=== PATIENT | male | born 1965 | race Caucasian/White ===

== ENCOUNTER 2017-03-24 09:26 | Outpatient (RCR) | payer OTHER, SELFPAY ==
[2017-03-24 09:53] VITALS: BP 128/82; PULSE 76; RESP 18; TEMP 37.2; BMI 26.4
--- NOTE | 2017-03-24 10:37 | PCM.WC.HP ---
(1) Venous insufficiency (chronic) (peripheral) Status: Chronic Current Visit: Yes Code(s): I87.2 - Venous insufficiency (chronic) (peripheral) (2) Swelling of right lower extremity Status: Chronic Current Visit: Yes Code(s): M79.89 - Other specified soft tissue disorders (3) Edema of right lower leg due to venous stasis Status: Chronic Current Visit: Yes Code(s): I87.2 - Venous insufficiency (chronic) (peripheral); R60.9 - Edema, unspecified (4) Hepatitis C Status: Chronic Current Visit: No Code(s): B19.20 - Unspecified viral hepatitis C without hepatic coma (5) Lipodermatosclerosis Status: Chronic Current Visit: Yes Code(s): I83.10 - Varicose veins of unspecified lower extremity with inflammation (6) Hyperpigmentation Status: Chronic Current Visit: Yes Code(s): L81.9 - Disorder of pigmentation, unspecified (7) Tobacco abuse Status: Chronic Current Visit: No Code(s): Z72.0 - Tobacco use (8) Tobacco abuse counseling Status: Chronic Current Visit: No Code(s): Z71.6 - Tobacco abuse counseling History of Present Illness Date of Service: 03/24/17 Chief Complaint: Chronic venous insufficiency with chronic swelling, edema, and venous stasis changes in the right lower extremity History of Wound: This is a generally healthy and active 51-year-old male with suspected chronic venous insufficiency, and associated symptoms in his right lower extremity which are related to chronic venous disease. The patient has swelling and edema in his right lower extremity, which is more profound at the end of the day. He also complains of pain and discomfort in his right lower extremity. Patient has cutaneous manifestations of chronic venous disease, namely hyperpigmentation, hemosiderin staining, and lipodermatosclerosis on the medial aspect of the distal right lower extremity involving the gaiter area. The patient denies a history of thrombophlebitis. He leads an active lifestyle. He sleeps on a flat mattress at night. He elevates his legs during daytime hours frequently. The patient underwent a venous duplex examination at [facility] on March 10, 2017, which revealed no evidence of right lower extremity thrombophlebitis. Superficial venous incompetence was not assessed. Past Medical History Past Medical History: Chronic Problems Venous insufficiency (chronic) (peripheral) (Chronic) Swelling of right lower extremity (Chronic) Edema of right lower leg due to venous stasis (Chronic) Hepatitis C (Chronic) Lipodermatosclerosis (Chronic) Hyperpigmentation (Chronic) Tobacco abuse (Chronic) Tobacco abuse counseling (Chronic) Past Medical History: The patient's history is negative for myocardial infarction, congestive heart failure, hypertension, cerebrovascular accident, diabetes mellitus, cancer, renal disease, pulmonary disease, hyperlipidemia, and thyroid disease. Patient is positive for hepatitis C. He also uses tobacco products, smoking a pack of cigarettes per day. He takes no medications on a regular basis. Surgical History: - - The patient denies surgical procedures in the past. Allergies/Adverse Reactions: Allergies No Known Allergies Allergy (Verified 03/24/17 10:04) - Family History Maternal - - Patient's father is 73 years of age with a history of chronic obstructive pulmonary disease. Patient's mother is 72 years of age and healthy. Social History: The patient is employed as a [employer]. He is currently not working. He smokes 1 pack of cigarettes per day for many years. He consumes a sixpack of beer every couple of days. He is . Lives: Alone Smoking Status: Current every day smoker Tobacco Use: Cigarettes Alcohol: Occasional, Heavy Review of Systems Constitutional: Denies: Chills, Fever, Weight Change Eyes: Denies: Pain, Vision Change HEENT: Denies: Difficulty Hearing, Difficulty Swallowing, Sinus Congestion Cardiovascular: Denies: Chest Pain, Palpitations Respiratory: Denies: Cough, Shortness of Breath Gastrointestinal: Denies: Diarrhea, Nausea, Vomiting Genitourinary: Denies: Dysuria, Hematuria Endocrine: Denies: Heat/ Cold Intolerance, Polydipsia, Polyuria Hematologic/ Lymphatic: Denies: Easy Bruising, Easy Bleeding - Physical Exam Vital Signs Temp Pulse Resp BP 98.9 F 76 18 128/82 H 03/24/17 09:53 03/24/17 09:53 03/24/17 09:53 03/24/17 09:53 General: Alert, Oriented x3, Cooperative, No apparent distress, Well developed, Well nourished, - - The patient is of relatively normal body habitus HEENT: Atraumatic, PERRLA, EOMI, Normocephalic Oral: Moist Mucosa, No Gingival or Mucosal Lesions/ Ulcerations Neck: Supple, No JVD, Negative Carotid Bruits, Negative Hepatojugular Reflux, No Nodes, No Nuchal Rigidity, Trachea Midline Lungs: Clear to auscultation, Normal air movement, No rhonchi, No wheeze, No rales Cardiovascular: Regular rate, Regular Rhythm, Normal S1, Normal S2, No murmurs Abdomen: Soft, Non Tender, Non-Distended Extremities: No clubbing, No cyanosis, No Calf Tenderness, - - Very slight swelling and edema is noted in the patient's right lower extremity. Hemosiderin staining is noted near the right medial malleolus. A large patch of scaly erythematous epidermis is noted in the right supramalleolar area. There is no sign of infection or cellulitis. There are no open wounds or ulcerations. Wound Measurements and Assessment WC - Nurse 1 - General Ulcer Measurement Start: 03/24/17 09:52 Freq: Status: Active Protocol: Activity Type Activity Date Activity User E-Sign Co-Sign Detail Recorded Client Recorded Date Recorded By Document 03/24/17 09:53 [id number] 03/24/17 09:59 03/24/17 09:53 Wound Center Nurse 1 [Edema Assessment] -Lower Limb Edema Present Yes -Right Calf (cm) 36.3 -Right Ankle (cm) 21.5 -Left Calf (cm) 34.5 -Left Ankle (cm) 20.2 WC - Nurse 2 - General Ulcer CM Notes Start: 03/24/17 09:52 Freq: Status: Active Protocol: Activity Type Activity Date Activity User E-Sign Co-Sign Detail Recorded Client Recorded Date Recorded By Document 03/24/17 10:24 DV [id number] 03/24/17 10:27 DV 03/24/17 10:24 Pain Scale: 0-10 Numeric [Pain] -Is Patient Pain Free? Yes Musculoskeletal: No Muscle Wasting Neurological: Cranial nerves II-XII grossly intact, Neuro grossly intact Psych/Mental Status: Normal Affect, Appropriate, Alert and oriented to time, place, person, mood and affect Debridement Note Post-Debridement Measurements/Treatment WC - Nurse 2 - General Ulcer CM Notes Start: 03/24/17 09:52 Freq: Status: Active Protocol: Activity Type Activity Date Activity User E-Sign Co-Sign Detail Recorded Client Recorded Date Recorded By Document 03/24/17 10:24 DV [id number] 03/24/17 10:27 DV 03/24/17 10:24 Pain Scale: 0-10 Numeric Is Patient Pain Free? Yes No debridement was completed today Assessment/Plan Active Problems Venous insufficiency (chronic) (peripheral) (Chronic) Swelling of right lower extremity (Chronic) Edema of right lower leg due to venous stasis (Chronic) Lipodermatosclerosis (Chronic) Hyperpigmentation (Chronic) Assessment: This is a 51-year-old active male with swelling and edema in his right lower extremity, as well as some skin changes and hyperpigmentation in the right medial supramalleolar area. The location of the skin changes and the patient's history are suggestive of chronic venous disease. Plan: A lengthy discussion has been undertaken with regard to the conservative treatment measures appropriate to the management of chronic venous insufficiency. The patient has been advised to elevate his lower extremities as much as possible. He appears to be doing so already. He is sleeping on a flat mattress at night. He lays down to elevate his legs even during daytime hours. He has been advised to avoid prolonged idle standing and sitting. Activity has been encouraged. The patient is currently of reasonably good weight. Ultimately, we are likely to implement the use of graduated compression stockings, to be worn daily. We are to obtain a venous duplex examination of the lower extremities, to assess the patency and competence of the deep and superficial venous systems bilaterally. The patient will return in 1-2 weeks following completion of his venous duplex evaluation. The patient is a smoker. Smoking cessation has been advised. Counseling has been provided. Influenza vaccine was not administered today. The patient weighs 195 pounds. He stands 6 feet 0 inches tall. BMI is 26.4. This places the patient in the overweight category. He has been advised to discuss this matter with his primary care physician.
--- NOTE | 2017-03-24 10:47 | HP.PCM_ITS ---
(1) Venous insufficiency (chronic) (peripheral) Status: Chronic Current Visit: Yes Code(s): I87.2 - Venous insufficiency ( chronic) (peripheral) (2) Swelling of right lower extremity Status: Chronic Current Visit: Yes Code(s): M79.89 - Other specified soft tissue disorders (3) Edema of right lower leg due to venous stasis Status: Chronic Current Visit: Yes Code(s): I87.2 - Venous insufficiency ( chronic) (peripheral); R60.9 - Edema, unspecified (4) Hepatitis C Status: Chronic Current Visit: No Code(s): B19.20 - Unspecified viral hepatitis C without hepatic coma (5) Lipodermatosclerosis Status: Chronic Current Visit: Yes Code(s): I83.10 - Varicose veins of unspecified lower extremity with inflammation (6) Hyperpigmentation Status: Chronic Current Visit: Yes Code(s): L81.9 - Disorder of pigmentation , unspecified (7) Tobacco abuse Status: Chronic Current Visit: No Code(s): Z72.0 - Tobacco use (8) Tobacco abuse counseling Status: Chronic Current Visit: No Code(s): Z71.6 - Tobacco abuse counseling History of Present Illness Date of Service: 03/24/17 Chief Complaint: Chronic venous insufficiency with chronic swelling, edema, and venous stasis changes in the right lower extremity History of Wound: This is a generally healthy and active 51-year-old male with suspected chronic venous insufficiency, and associated symptoms in his right lower extremity which are related to chronic venous disease. The patient has swelling and edema in his right lower extremity, which is more profound at the end of the day. He also complains of pain and discomfort in his right lower extremity. Patient has cutaneous manifestations of chronic venous disease, namely hyperpigmentation, hemosiderin staining, and lipodermatosclerosis on the medial aspect of the distal right lower extremity involving the gaiter area. The patient denies a history of thrombophlebitis. He leads an active lifestyle. He sleeps on a flat mattress at night. He elevates his legs during daytime hours frequently. The patient underwent a venous duplex examination at [facility] on March 10, 2017, which revealed no evidence of right lower extremity thrombophlebitis. Superficial venous incompetence was not assessed. Past Medical History Past Medical History: Chronic Problems Venous insufficiency (chronic) (peripheral) (Chronic) Swelling of right lower extremity (Chronic) Edema of right lower leg due to venous stasis (Chronic) Hepatitis C (Chronic) Lipodermatosclerosis (Chronic) Hyperpigmentation (Chronic) Tobacco abuse (Chronic) Tobacco abuse counseling (Chronic) Past Medical History: The patient's history is negative for myocardial infarction, congestive heart failure, hypertension, cerebrovascular accident, diabetes mellitus, cancer, renal disease, pulmonary disease, hyperlipidemia, and thyroid disease. Patient is positive for hepatitis C. He also uses tobacco products, smoking a pack of cigarettes per day. He takes no medications on a regular basis. Surgical History: - - The patient denies surgical procedures in the past. Allergies/Adverse Reactions: Allergies No Known Allergies Allergy (Verified 03/24/17 10:04) - Family History Maternal - - Patient's father is 73 years of age with a history of chronic obstructive pulmonary disease. Patient's mother is 72 years of age and healthy. Social History: The patient is employed as a [employer]. He is currently not working. He smokes 1 pack of cigarettes per day for many years. He consumes a sixpack of beer every couple of days. He is . Lives: Alone Smoking Status: Current every day smoker Tobacco Use: Cigarettes Alcohol: Occasional, Heavy Review of Systems Constitutional: Denies: Chills, Fever, Weight Change Eyes: Denies: Pain, Vision Change HEENT: Denies: Difficulty Hearing, Difficulty Swallowing, Sinus Congestion Cardiovascular: Denies: Chest Pain, Palpitations Respiratory: Denies: Cough, Shortness of Breath Gastrointestinal: Denies: Diarrhea, Nausea, Vomiting Genitourinary: Denies: Dysuria, Hematuria Endocrine: Denies: Heat/ Cold Intolerance, Polydipsia, Polyuria Hematologic/ Lymphatic: Denies: Easy Bruising, Easy Bleeding - Physical Exam Vital Signs Temp Pulse Resp BP 98.9 F 76 18 128/82 H 03/24/17 09:53 03/24/17 09:53 03/24/17 09:53 03/24/17 09:53 General: Alert, Oriented x3, Cooperative, No apparent distress, Well developed, Well nourished, - - The patient is of relatively normal body habitus HEENT: Atraumatic, PERRLA, EOMI, Normocephalic Oral: Moist Mucosa, No Gingival or Mucosal Lesions/ Ulcerations Neck: Supple, No JVD, Negative Carotid Bruits, Negative Hepatojugular Reflux, No Nodes, No Nuchal Rigidity, Trachea Midline Lungs: Clear to auscultation, Normal air movement, No rhonchi, No wheeze, No rales Cardiovascular: Regular rate, Regular Rhythm, Normal S1, Normal S2, No murmurs Abdomen: Soft, Non Tender, Non-Distended Extremities: No clubbing, No cyanosis, No Calf Tenderness, - - Very slight swelling and edema is noted in the patient's right lower extremity. Hemosiderin staining is noted near the right medial malleolus. A large patch of scaly erythematous epidermis is noted in the right supramalleolar area. There is no sign of infection or cellulitis. There are no open wounds or ulcerations. Wound Measurements and Assessment WC - Nurse 1 - General Ulcer Measurement Start: 03/24/17 09:52 Freq: Status: Active Protocol: Activity Type Activity Date Activity User E-Sign Co-Sign Detail Recorded Client Recorded Date Recorded By Document 03/24/17 09:53 [id number] 03/24/17 09:59 03/24/17 09:53 Wound Center Nurse 1 [Edema Assessment] -Lower Limb Edema Present Yes -Right Calf (cm) 36.3 -Right Ankle (cm) 21.5 -Left Calf (cm) 34.5 -Left Ankle (cm) 20.2 WC - Nurse 2 - General Ulcer CM Notes Start: 03/24/17 09:52 Freq: Status: Active Protocol: Activity Type Activity Date Activity User E-Sign Co-Sign Detail Recorded Client Recorded Date Recorded By Document 03/24/17 10:24 DV [id number] 03/24/17 10:27 DV 03/24/17 10:24 Pain Scale: 0-10 Numeric [Pain] -Is Patient Pain Free? Yes Musculoskeletal: No Muscle Wasting Neurological: Cranial nerves II-XII grossly intact, Neuro grossly intact Psych/Mental Status: Normal Affect, Appropriate, Alert and oriented to time, place, person, mood and affect Debridement Note Post-Debridement Measurements/Treatment WC - Nurse 2 - General Ulcer CM Notes Start: 03/24/17 09:52 Freq: Status: Active Protocol: Activity Type Activity Date Activity User E-Sign Co-Sign Detail Recorded Client Recorded Date Recorded By Document 03/24/17 10:24 DV [id number] 03/24/17 10:27 DV 03/24/17 10:24 Pain Scale: 0-10 Numeric Is Patient Pain Free? Yes No debridement was completed today Assessment/Plan Active Problems Venous insufficiency (chronic) (peripheral) (Chronic) Swelling of right lower extremity (Chronic) Edema of right lower leg due to venous stasis (Chronic) Lipodermatosclerosis (Chronic) Hyperpigmentation (Chronic) Assessment: This is a 51-year-old active male with swelling and edema in his right lower extremity, as well as some skin changes and hyperpigmentation in the right medial supramalleolar area. The location of the skin changes and the patient's history are suggestive of chronic venous disease. Plan: A lengthy discussion has been undertaken with regard to the conservative treatment measures appropriate to the management of chronic venous insufficiency. The patient has been advised to elevate his lower extremities as much as possible. He appears to be doing so already. He is sleeping on a flat mattress at night. He lays down to elevate his legs even during daytime hours. He has been advised to avoid prolonged idle standing and sitting. Activity has been encouraged. The patient is currently of reasonably good weight. Ultimately, we are likely to implement the use of graduated compression stockings, to be worn daily. We are to obtain a venous duplex examination of the lower extremities, to assess the patency and competence of the deep and superficial venous systems bilaterally. The patient will return in 1-2 weeks following completion of his venous duplex evaluation. The patient is a smoker. Smoking cessation has been advised. Counseling has been provided. Influenza vaccine was not administered today. The patient weighs 195 pounds. He stands 6 feet 0 inches tall. BMI is 26.4. This places the patient in the overweight category. He has been advised to discuss this matter with his primary care physician.
--- NOTE | 2017-03-24 11:31 | PCM.WC.PN ---
(1) Venous insufficiency (chronic) (peripheral) Status: Chronic Current Visit: Yes Code(s): I87.2 - Venous insufficiency (chronic) (peripheral) (2) Swelling of right lower extremity Status: Chronic Current Visit: Yes Code(s): M79.89 - Other specified soft tissue disorders (3) Edema of right lower leg due to venous stasis Status: Chronic Current Visit: Yes Code(s): I87.2 - Venous insufficiency (chronic) (peripheral); R60.9 - Edema, unspecified (4) Hepatitis C Status: Chronic Current Visit: No Code(s): B19.20 - Unspecified viral hepatitis C without hepatic coma (5) Lipodermatosclerosis Status: Chronic Current Visit: Yes Code(s): I83.10 - Varicose veins of unspecified lower extremity with inflammation (6) Hyperpigmentation Status: Chronic Current Visit: Yes Code(s): L81.9 - Disorder of pigmentation, unspecified (7) Tobacco abuse Status: Chronic Current Visit: No Code(s): Z72.0 - Tobacco use (8) Tobacco abuse counseling Status: Chronic Current Visit: No Code(s): Z71.6 - Tobacco abuse counseling Type of Wound Date of Service: 03/24/17 Chief Complaint: Chronic venous insufficiency with chronic swelling, edema, and venous stasis changes in the right lower extremity History of Wound: This is a generally healthy and active 51-year-old male with suspected chronic venous insufficiency, and associated symptoms in his right lower extremity which are related to chronic venous disease. The patient has swelling and edema in his right lower extremity, which is more profound at the end of the day. He also complains of pain and discomfort in his right lower extremity. Patient has cutaneous manifestations of chronic venous disease, namely hyperpigmentation, hemosiderin staining, and lipodermatosclerosis on the medial aspect of the distal right lower extremity involving the gaiter area. The patient denies a history of thrombophlebitis. He leads an active lifestyle. He sleeps on a flat mattress at night. He elevates his legs during daytime hours frequently. The patient underwent a venous duplex examination at [facility] on March 10, 2017, which revealed no evidence of right lower extremity thrombophlebitis. Superficial venous incompetence was not assessed. - Physical Exam Vital Signs Temp Pulse Resp BP 98.9 F 76 18 128/82 H 03/24/17 09:53 03/24/17 09:53 03/24/17 09:53 03/24/17 09:53 Wound Measurements and Assessment WC - Nurse 1 - General Ulcer Measurement Start: 03/24/17 09:52 Freq: Status: Active Protocol: Activity Type Activity Date Activity User E-Sign Co-Sign Detail Recorded Client Recorded Date Recorded By Document 03/24/17 09:53 [id number] 03/24/17 09:59 03/24/17 09:53 Wound Center Nurse 1 [Edema Assessment] -Lower Limb Edema Present Yes -Right Calf (cm) 36.3 -Right Ankle (cm) 21.5 -Left Calf (cm) 34.5 -Left Ankle (cm) 20.2 WC - Nurse 2 - General Ulcer CM Notes Start: 03/24/17 09:52 Freq: Status: Active Protocol: Activity Type Activity Date Activity User E-Sign Co-Sign Detail Recorded Client Recorded Date Recorded By Document 03/24/17 10:24 DV [id number] 03/24/17 10:27 DV 03/24/17 10:24 Pain Scale: 0-10 Numeric [Pain] -Is Patient Pain Free? Yes Debridement Note Post-Debridement Measurements/Treatment WC - Nurse 2 - General Ulcer CM Notes Start: 03/24/17 09:52 Freq: Status: Active Protocol: Activity Type Activity Date Activity User E-Sign Co-Sign Detail Recorded Client Recorded Date Recorded By Document 03/24/17 10:24 DV [id number] 03/24/17 10:27 DV 03/24/17 10:24 Pain Scale: 0-10 Numeric Is Patient Pain Free? Yes Assessment/Plan Active Problems Venous insufficiency (chronic) (peripheral) (Chronic) Swelling of right lower extremity (Chronic) Edema of right lower leg due to venous stasis (Chronic) Lipodermatosclerosis (Chronic) Hyperpigmentation (Chronic) Assessment: This is a 51-year-old active male with swelling and edema in his right lower extremity, as well as some skin changes and hyperpigmentation in the right medial supramalleolar area. The location of the skin changes and the patient's history are suggestive of chronic venous disease. Plan: A lengthy discussion has been undertaken with regard to the conservative treatment measures appropriate to the management of chronic venous insufficiency. The patient has been advised to elevate his lower extremities as much as possible. He appears to be doing so already. He is sleeping on a flat mattress at night. He lays down to elevate his legs even during daytime hours. He has been advised to avoid prolonged idle standing and sitting. Activity has been encouraged. The patient is currently of reasonably good weight. Ultimately, we are likely to implement the use of graduated compression stockings, to be worn daily. We are to obtain a venous duplex examination of the lower extremities, to assess the patency and competence of the deep and superficial venous systems bilaterally. The patient will return in 1-2 weeks following completion of his venous duplex evaluation. Patient has also been advised to obtain an [id number] product for topical use, such as clotrimazole or Lotrisone, which will offer both antifungal and topical steroid properties for the erythematous area on the right supramalleolar area. This is to be used topically on a twice daily basis. The patient is a smoker. Smoking cessation has been advised. Counseling has been provided. Influenza vaccine was not administered today. The patient weighs 195 pounds. He stands 6 feet 0 inches tall. BMI is 26.4. This places the patient in the overweight category. He has been advised to discuss this matter with his primary care physician.
== END 2017-03-25 23:59 ==
LOC: WC 09:26
PROVIDERS: Family Provider Nurse Practitioner Family; PCP Nurse Practitioner Family; Visit Provider Surgery
DX: I83.11 Varicose veins of right lower extremity with inflammation (principal); M79.89 Other specified soft tissue disorders; B18.2 Chronic viral hepatitis C; R60.0 Localized edema; F17.210 Nicotine dependence, cigarettes, uncomplicated
CPT/HCPCS: 99203; G0463

== ENCOUNTER 2017-04-21 10:00 | Outpatient (RCR) | payer MEDICAID, SELFPAY ==
[2017-03-24 09:53] VITALS: BP 128/82
[2017-03-26 01:21] VITALS: PULSE 76; RESP 18; TEMP 37.2
--- NOTE | 2017-03-31 08:51 | VDLE_ITS ---
Reason For Study: LEG SWELLING RIGHT LEFT CFV and FV are patent, compressible, CFV is compressible, spontaneous, phasic, spontaneous, phasic and demonstrate competent, and demonstrates normal INCOMPETENCY with augmentation. augmentation. POP V is patent, compressible, spontaneous, FV is compressible, spontaneous, phasic, phasic and competent with augmentation competent and demonstrates normal T/P trunk is compressible augmentation. PTV is compressible POP V is compressible, spontaneous, phasic, PER V is compressible competent and demonstrates normal augmentation. SFJ is competent T/P Trunk is compressible. GSV is INCOMPETENT with reflux greater PTV is compressible. than .5 sec and diameter of .64 x .67 cm LT PerV is compressible. SSv is INCOMPETENT with reflux greater SFJ is competent than .5 sec and diameter of .25 x .27 cm. GSV is INCOMPETENT with reflux greater Procedure than .5 sec and diameter of .34 x .38 cm Exam performed in department. SSV is competent. A preliminary report was called and/or faxed to [facility]. Interpretation Summary Deep veins of the lower extremities are bilaterally patent and compressible segmentally. There is no evidence of deep vein thrombosis on either side. The right common femoral vein and femoral vein are incompetent. The right popliteal vein is competent. Valvular competence appears intact within the proximal deep venous system on the left . The greater saphenous veins appear bilaterally patent and compressible segmentally. Sapheno-femoral junctions are bilaterally competent . Segmental valvular incompetence is noted within the greater saphenous veins bilaterally. The right small saphenous vein is patent and incompetent. The left small saphenous vein is patent and competent. Ordering Physician: Juan Schneider Performed By: Mera Alvarez RVT
[2017-03-31 10:22] VITALS: BP 135/82; PULSE 75; RESP 16; TEMP 35.2; BMI 26.4
--- NOTE | 2017-03-31 10:49 | PCM.WC.HP ---
(1) Venous insufficiency (chronic) (peripheral) Status: Chronic Current Visit: Yes Code(s): I87.2 - Venous insufficiency (chronic) (peripheral) (2) Swelling of right lower extremity Status: Chronic Current Visit: Yes Code(s): M79.89 - Other specified soft tissue disorders (3) Edema of right lower leg due to venous stasis Status: Chronic Current Visit: Yes Code(s): I87.2 - Venous insufficiency (chronic) (peripheral); R60.9 - Edema, unspecified (4) Hepatitis C Status: Chronic Current Visit: No Code(s): B19.20 - Unspecified viral hepatitis C without hepatic coma (5) Lipodermatosclerosis Status: Chronic Current Visit: Yes Code(s): I83.10 - Varicose veins of unspecified lower extremity with inflammation (6) Hyperpigmentation Status: Chronic Current Visit: Yes Code(s): L81.9 - Disorder of pigmentation, unspecified (7) Tobacco abuse Status: Chronic Current Visit: Yes Code(s): Z72.0 - Tobacco use (8) Tobacco abuse counseling Status: Chronic Current Visit: Yes Code(s): Z71.6 - Tobacco abuse counseling History of Present Illness Date of Service: 03/31/17 Chief Complaint: Chronic venous insufficiency with chronic swelling, edema, and venous stasis changes in the right lower extremity History of Wound: This is a generally healthy and active 51-year-old male with suspected chronic venous insufficiency, and associated symptoms in his right lower extremity which are related to chronic venous disease. The patient has swelling and edema in his right lower extremity, which is more profound at the end of the day. He also complains of pain and discomfort in his right lower extremity. Patient has cutaneous manifestations of chronic venous disease, namely hyperpigmentation, hemosiderin staining, and lipodermatosclerosis on the medial aspect of the distal right lower extremity involving the gaiter area. The patient denies a history of thrombophlebitis. He leads an active lifestyle. He sleeps on a flat mattress at night. He elevates his legs during daytime hours frequently. The patient underwent a venous duplex examination at [facility] on March 10, 2017, which revealed no evidence of right lower extremity thrombophlebitis. Superficial venous incompetence was not assessed. Subsequently, patient is undergone a venous duplex examination earlier today, revealing incompetence of the right great saphenous vein, the right small saphenous vein, and the left great saphenous vein. Past Medical History Past Medical History: Chronic Problems Venous insufficiency (chronic) (peripheral) (Chronic) Swelling of right lower extremity (Chronic) Edema of right lower leg due to venous stasis (Chronic) Hepatitis C (Chronic) Lipodermatosclerosis (Chronic) Hyperpigmentation (Chronic) Tobacco abuse (Chronic) Tobacco abuse counseling (Chronic) Surgical History: - - The patient denies surgical procedures in the past. Allergies/Adverse Reactions: Allergies No Known Allergies Allergy (Verified 03/24/17 10:04) - Family History Maternal - - Patient's father is 73 years of age with a history of chronic obstructive pulmonary disease. Patient's mother is 72 years of age and healthy. Smoking Status: Current every day smoker Tobacco Use: Cigarettes Review of Systems Constitutional: Denies: Chills, Fever, Weight Change Eyes: Denies: Pain, Vision Change HEENT: Denies: Difficulty Hearing, Difficulty Swallowing, Sinus Congestion Cardiovascular: Denies: Chest Pain, Palpitations Respiratory: Denies: Cough, Shortness of Breath Gastrointestinal: Denies: Diarrhea, Nausea, Vomiting Genitourinary: Denies: Dysuria, Hematuria Endocrine: Denies: Heat/ Cold Intolerance, Polydipsia, Polyuria Hematologic/ Lymphatic: Denies: Easy Bruising, Easy Bleeding - Physical Exam Vital Signs Temp Pulse Resp BP 95.3 F L 75 16 135/82 H 03/31/17 10:22 03/31/17 10:22 03/31/17 10:22 03/31/17 10:22 General: Alert, Oriented x3, Cooperative, No apparent distress, Well developed, Well nourished HEENT: Atraumatic, PERRLA, EOMI, Normocephalic Oral: Moist Mucosa Neck: No JVD Lungs: Normal air movement Abdomen: Non-Distended Extremities: No clubbing, No cyanosis, No edema, No Calf Tenderness, - - No significant swelling or edema is noted in either lower extremity. There are no open wounds or ulcerations. Chronic changes persist in the right lower extremity, namely lipodermatosclerosis and hemosiderin staining in the medial aspect of the distal right lower extremity, near the right medial malleolus and in the right supramalleolar area. In addition, there is an area in the right medial supramalleolar area which is well demarcated and erythematous. This is slightly improved over that noted at the patient's prior visit. There is no breach in skin integrity. Skin: No rashes, No breakdown Wound Measurements and Assessment WC - Nurse 1 - General Ulcer Measurement Start: 03/31/17 10:22 Freq: Status: Active Protocol: Activity Type Activity Date Activity User E-Sign Co-Sign Detail Recorded Client Recorded Date Recorded By Document 03/31/17 10:22 [id number] 03/31/17 10:23 03/31/17 10:22 Wound Center Nurse 1 [Edema Assessment] -Lower Limb Edema Present Yes -Right Calf (cm) 36.5 -Right Ankle (cm) 22.2 -Left Calf (cm) 36.0 -Left Ankle (cm) 21.4 WC - Nurse 2 - General Ulcer CM Notes Start: 03/31/17 10:22 Freq: Status: Active Protocol: Activity Type Activity Date Activity User E-Sign Co-Sign Detail Recorded Client Recorded Date Recorded By Document 03/31/17 10:37 [id number] 03/31/17 10:39 03/31/17 10:37 Pain Scale: 0-10 Numeric [Pain] -Is Patient Pain Free? Yes Neurological: Cranial nerves II-XII grossly intact, Neuro grossly intact Psych/Mental Status: Normal Affect, Appropriate, Alert and oriented to time, place, person, mood and affect Debridement Note Post-Debridement Measurements/Treatment WC - Nurse 2 - General Ulcer CM Notes Start: 03/31/17 10:22 Freq: Status: Active Protocol: Activity Type Activity Date Activity User E-Sign Co-Sign Detail Recorded Client Recorded Date Recorded By Document 03/31/17 10:37 [id number] 03/31/17 10:39 03/31/17 10:37 Pain Scale: 0-10 Numeric Is Patient Pain Free? Yes No debridement was completed today Assessment/Plan Active Problems Venous insufficiency (chronic) (peripheral) (Chronic) Swelling of right lower extremity (Chronic) Edema of right lower leg due to venous stasis (Chronic) Lipodermatosclerosis (Chronic) Hyperpigmentation (Chronic) Tobacco abuse (Chronic) Tobacco abuse counseling (Chronic) Assessment: This is a 51-year-old active male with swelling and edema in his right lower extremity, as well as some skin changes and hyperpigmentation in the right medial supramalleolar area. The location of the skin changes and the patient's history are suggestive of chronic venous disease. A venous duplex examination, performed earlier today, confirms superficial venous incompetence in the right lower extremity, affecting the right great saphenous vein and the right small saphenous vein. Plan: A lengthy discussion has again been undertaken with regard to the conservative treatment measures appropriate to the management of chronic venous insufficiency. The patient has been advised to elevate his lower extremities as much as possible. He appears to be doing so already. He is sleeping on a flat mattress at night. He lays down to elevate his legs even during daytime hours. He has been advised to avoid prolonged idle standing and sitting. Activity has been encouraged. The patient is currently of reasonably good weight. We have now provided the patient with a prescription for graduated compression stockings, knee-high length, of 20-30 mmHg compression. He is to fill the prescription, and is to wear his graduated compression stockings on a daily basis. The use of nonsteroidal anti-inflammatory medications has been discussed for use on an as needed basis. Patient is to continue using the topical ointments, consisting of a steroid and antifungal agent. Thus far there is been mild improvement in the erythematous skin lesion in the right supramalleolar area. This will be monitored on a serial basis. The patient is to return for reassessment in approximately 3 weeks. Depending on his response to conservative treatment measures, he may be a candidate for endovenous ablation of the right great saphenous vein in the right small saphenous vein, as he does have clinical findings and stigmata of chronic venous disease in his right lower extremity. The patient is a smoker. Smoking cessation has been advised. Smoking cessation counseling has been provided. Influenza vaccine was not administered today. The patient weighs 195 pounds. He stands 6 feet 0 inches tall. BMI is 26.4. This places the patient in the overweight category. He has been advised to discuss this matter with his primary care physician.
--- NOTE | 2017-03-31 10:57 | HP.PCM_ITS ---
(1) Venous insufficiency (chronic) (peripheral) Status: Chronic Current Visit: Yes Code(s): I87.2 - Venous insufficiency ( chronic) (peripheral) (2) Swelling of right lower extremity Status: Chronic Current Visit: Yes Code(s): M79.89 - Other specified soft tissue disorders (3) Edema of right lower leg due to venous stasis Status: Chronic Current Visit: Yes Code(s): I87.2 - Venous insufficiency ( chronic) (peripheral); R60.9 - Edema, unspecified (4) Hepatitis C Status: Chronic Current Visit: No Code(s): B19.20 - Unspecified viral hepatitis C without hepatic coma (5) Lipodermatosclerosis Status: Chronic Current Visit: Yes Code(s): I83.10 - Varicose veins of unspecified lower extremity with inflammation (6) Hyperpigmentation Status: Chronic Current Visit: Yes Code(s): L81.9 - Disorder of pigmentation , unspecified (7) Tobacco abuse Status: Chronic Current Visit: Yes Code(s): Z72.0 - Tobacco use (8) Tobacco abuse counseling Status: Chronic Current Visit: Yes Code(s): Z71.6 - Tobacco abuse counseling History of Present Illness Date of Service: 03/31/17 Chief Complaint: Chronic venous insufficiency with chronic swelling, edema, and venous stasis changes in the right lower extremity History of Wound: This is a generally healthy and active 51-year-old male with suspected chronic venous insufficiency, and associated symptoms in his right lower extremity which are related to chronic venous disease. The patient has swelling and edema in his right lower extremity, which is more profound at the end of the day. He also complains of pain and discomfort in his right lower extremity. Patient has cutaneous manifestations of chronic venous disease, namely hyperpigmentation, hemosiderin staining, and lipodermatosclerosis on the medial aspect of the distal right lower extremity involving the gaiter area. The patient denies a history of thrombophlebitis. He leads an active lifestyle. He sleeps on a flat mattress at night. He elevates his legs during daytime hours frequently. The patient underwent a venous duplex examination at [facility] on March 10, 2017, which revealed no evidence of right lower extremity thrombophlebitis. Superficial venous incompetence was not assessed. Subsequently, patient is undergone a venous duplex examination earlier today, revealing incompetence of the right great saphenous vein, the right small saphenous vein, and the left great saphenous vein. Past Medical History Past Medical History: Chronic Problems Venous insufficiency (chronic) (peripheral) (Chronic) Swelling of right lower extremity (Chronic) Edema of right lower leg due to venous stasis (Chronic) Hepatitis C (Chronic) Lipodermatosclerosis (Chronic) Hyperpigmentation (Chronic) Tobacco abuse (Chronic) Tobacco abuse counseling (Chronic) Surgical History: - - The patient denies surgical procedures in the past. Allergies/Adverse Reactions: Allergies No Known Allergies Allergy (Verified 03/24/17 10:04) - Family History Maternal - - Patient's father is 73 years of age with a history of chronic obstructive pulmonary disease. Patient's mother is 72 years of age and healthy. Smoking Status: Current every day smoker Tobacco Use: Cigarettes Review of Systems Constitutional: Denies: Chills, Fever, Weight Change Eyes: Denies: Pain, Vision Change HEENT: Denies: Difficulty Hearing, Difficulty Swallowing, Sinus Congestion Cardiovascular: Denies: Chest Pain, Palpitations Respiratory: Denies: Cough, Shortness of Breath Gastrointestinal: Denies: Diarrhea, Nausea, Vomiting Genitourinary: Denies: Dysuria, Hematuria Endocrine: Denies: Heat/ Cold Intolerance, Polydipsia, Polyuria Hematologic/ Lymphatic: Denies: Easy Bruising, Easy Bleeding - Physical Exam Vital Signs Temp Pulse Resp BP 95.3 F L 75 16 135/82 H 03/31/17 10:22 03/31/17 10:22 03/31/17 10:22 03/31/17 10:22 General: Alert, Oriented x3, Cooperative, No apparent distress, Well developed, Well nourished HEENT: Atraumatic, PERRLA, EOMI, Normocephalic Oral: Moist Mucosa Neck: No JVD Lungs: Normal air movement Abdomen: Non-Distended Extremities: No clubbing, No cyanosis, No edema, No Calf Tenderness, - - No significant swelling or edema is noted in either lower extremity. There are no open wounds or ulcerations. Chronic changes persist in the right lower extremity, namely lipodermatosclerosis and hemosiderin staining in the medial aspect of the distal right lower extremity, near the right medial malleolus and in the right supramalleolar area. In addition, there is an area in the right medial supramalleolar area which is well demarcated and erythematous. This is slightly improved over that noted at the patient's prior visit. There is no breach in skin integrity. Skin: No rashes, No breakdown Wound Measurements and Assessment WC - Nurse 1 - General Ulcer Measurement Start: 03/31/17 10:22 Freq: Status: Active Protocol: Activity Type Activity Date Activity User E-Sign Co-Sign Detail Recorded Client Recorded Date Recorded By Document 03/31/17 10:22 [id number] 03/31/17 10:23 03/31/17 10:22 Wound Center Nurse 1 [Edema Assessment] -Lower Limb Edema Present Yes -Right Calf (cm) 36.5 -Right Ankle (cm) 22.2 -Left Calf (cm) 36.0 -Left Ankle (cm) 21.4 WC - Nurse 2 - General Ulcer CM Notes Start: 03/31/17 10:22 Freq: Status: Active Protocol: Activity Type Activity Date Activity User E-Sign Co-Sign Detail Recorded Client Recorded Date Recorded By Document 03/31/17 10:37 [id number] 03/31/17 10:39 03/31/17 10:37 Pain Scale: 0-10 Numeric [Pain] -Is Patient Pain Free? Yes Neurological: Cranial nerves II-XII grossly intact, Neuro grossly intact Psych/Mental Status: Normal Affect, Appropriate, Alert and oriented to time, place, person, mood and affect Debridement Note Post-Debridement Measurements/Treatment WC - Nurse 2 - General Ulcer CM Notes Start: 03/31/17 10:22 Freq: Status: Active Protocol: Activity Type Activity Date Activity User E-Sign Co-Sign Detail Recorded Client Recorded Date Recorded By Document 03/31/17 10:37 [id number] 03/31/17 10:39 03/31/17 10:37 Pain Scale: 0-10 Numeric Is Patient Pain Free? Yes No debridement was completed today Assessment/Plan Active Problems Venous insufficiency (chronic) (peripheral) (Chronic) Swelling of right lower extremity (Chronic) Edema of right lower leg due to venous stasis (Chronic) Lipodermatosclerosis (Chronic) Hyperpigmentation (Chronic) Tobacco abuse (Chronic) Tobacco abuse counseling (Chronic) Assessment: This is a 51-year-old active male with swelling and edema in his right lower extremity, as well as some skin changes and hyperpigmentation in the right medial supramalleolar area. The location of the skin changes and the patient's history are suggestive of chronic venous disease. A venous duplex examination, performed earlier today, confirms superficial venous incompetence in the right lower extremity, affecting the right great saphenous vein and the right small saphenous vein. Plan: A lengthy discussion has again been undertaken with regard to the conservative treatment measures appropriate to the management of chronic venous insufficiency. The patient has been advised to elevate his lower extremities as much as possible. He appears to be doing so already. He is sleeping on a flat mattress at night. He lays down to elevate his legs even during daytime hours. He has been advised to avoid prolonged idle standing and sitting. Activity has been encouraged. The patient is currently of reasonably good weight. We have now provided the patient with a prescription for graduated compression stockings, knee-high length, of 20-30 mmHg compression. He is to fill the prescription, and is to wear his graduated compression stockings on a daily basis. The use of nonsteroidal anti-inflammatory medications has been discussed for use on an as needed basis. Patient is to continue using the topical ointments, consisting of a steroid and antifungal agent. Thus far there is been mild improvement in the erythematous skin lesion in the right supramalleolar area. This will be monitored on a serial basis. The patient is to return for reassessment in approximately 3 weeks. Depending on his response to conservative treatment measures, he may be a candidate for endovenous ablation of the right great saphenous vein in the right small saphenous vein, as he does have clinical findings and stigmata of chronic venous disease in his right lower extremity. The patient is a smoker. Smoking cessation has been advised. Smoking cessation counseling has been provided. Influenza vaccine was not administered today. The patient weighs 195 pounds. He stands 6 feet 0 inches tall. BMI is 26.4. This places the patient in the overweight category. He has been advised to discuss this matter with his primary care physician.
[2017-04-21 09:47] VITALS: BP 123/67; PULSE 87; RESP 16; TEMP 37.2; BMI 26.4
--- NOTE | 2017-04-21 10:23 | PCM.WC.HP ---
(1) Venous insufficiency (chronic) (peripheral) Status: Chronic Current Visit: Yes Code(s): I87.2 - Venous insufficiency (chronic) (peripheral) (2) Swelling of right lower extremity Status: Chronic Current Visit: Yes Code(s): M79.89 - Other specified soft tissue disorders (3) Edema of right lower leg due to venous stasis Status: Chronic Current Visit: Yes Code(s): I87.2 - Venous insufficiency (chronic) (peripheral); R60.9 - Edema, unspecified (4) Hepatitis C Status: Chronic Current Visit: No Code(s): B19.20 - Unspecified viral hepatitis C without hepatic coma (5) Lipodermatosclerosis Status: Chronic Current Visit: Yes Code(s): I83.10 - Varicose veins of unspecified lower extremity with inflammation (6) Hyperpigmentation Status: Chronic Current Visit: Yes Code(s): L81.9 - Disorder of pigmentation, unspecified (7) Tobacco abuse Status: Chronic Current Visit: Yes Code(s): Z72.0 - Tobacco use (8) Tobacco abuse counseling Status: Chronic Current Visit: Yes Code(s): Z71.6 - Tobacco abuse counseling History of Present Illness Date of Service: 04/21/17 Chief Complaint: Chronic venous insufficiency with chronic swelling, edema, and venous stasis changes in the right lower extremity History of Wound: This is a generally healthy and active 51-year-old male with chronic venous insufficiency, and associated symptoms in his right lower extremity which are related to chronic venous disease. The patient has swelling and edema in his right lower extremity, which is more profound at the end of the day. He also complains of pain and discomfort in his right lower extremity. Patient has cutaneous manifestations of chronic venous disease, namely hyperpigmentation, hemosiderin staining, and lipodermatosclerosis on the medial aspect of the distal right lower extremity involving the gaiter area. The patient denies a history of thrombophlebitis. He leads an active lifestyle. He sleeps on a flat mattress at night. He elevates his legs during daytime hours frequently. The patient underwent a venous duplex examination at [facility] on March 10, 2017, which revealed no evidence of right lower extremity thrombophlebitis. Superficial venous incompetence was not assessed. Subsequently, patient has undergone a venous duplex examination at [facility], revealing incompetence of the right great saphenous vein, the right small saphenous vein, and the left great saphenous vein. The patient has implemented conservative treatment measures relative to his right lower extremity venous disease, which included leg elevation, avoidance of idle standing and sitting, the use of graduated compression stockings of 20-30 mmHg compression, active lifestyle, weight control measures, and the use of nonsteroidal anti-inflammatory medications as needed. Past Medical History Past Medical History: Chronic Problems Tobacco abuse counseling (Chronic) Tobacco abuse (Chronic) Hyperpigmentation (Chronic) Lipodermatosclerosis (Chronic) Hepatitis C (Chronic) Edema of right lower leg due to venous stasis (Chronic) Swelling of right lower extremity (Chronic) Venous insufficiency (chronic) (peripheral) (Chronic) Surgical History: - - The patient denies surgical procedures in the past. Allergies/Adverse Reactions: Allergies No Known Allergies Allergy (Verified 03/24/17 10:04) - Family History Maternal - - Patient's father is 73 years of age with a history of chronic obstructive pulmonary disease. Patient's mother is 72 years of age and healthy. Smoking Status: Current every day smoker Tobacco Use: Cigarettes Review of Systems Constitutional: Denies: Chills, Fever, Weight Change Eyes: Denies: Pain, Vision Change HEENT: Denies: Difficulty Hearing, Difficulty Swallowing, Sinus Congestion Cardiovascular: Denies: Chest Pain, Palpitations Respiratory: Denies: Cough, Shortness of Breath Gastrointestinal: Denies: Diarrhea, Nausea, Vomiting Genitourinary: Denies: Dysuria, Hematuria Endocrine: Denies: Heat/ Cold Intolerance, Polydipsia, Polyuria Hematologic/ Lymphatic: Denies: Easy Bruising, Easy Bleeding - Physical Exam Vital Signs Temp Pulse Resp BP 98.9 F 87 16 123/67 H 04/21/17 09:47 04/21/17 09:47 04/21/17 09:47 04/21/17 09:47 General: Alert, Oriented x3, Cooperative, No apparent distress, Well developed, Well nourished HEENT: Atraumatic, PERRLA, EOMI, Normocephalic Oral: Moist Mucosa Neck: No JVD Lungs: Normal air movement Abdomen: Non-Distended Extremities: No clubbing, No cyanosis, No edema, No Calf Tenderness, - - There is no visible swelling or edema in the patient's right lower extremity. There are no open wounds or ulcerations. Chronic venous changes are noted, namely hyperpigmentation and lipodermatosclerosis in the right gaiter area. There is no sign of infection or cellulitis. Skin: No breakdown Wound Measurements and Assessment WC - Nurse 1 - General Ulcer Measurement Start: 03/31/17 10:22 Freq: Status: Active Protocol: Activity Type Activity Date Activity User E-Sign Co-Sign Detail Recorded Client Recorded Date Recorded By Document 04/21/17 09:47 [facility] [id number] 04/21/17 09:50 [facility] 04/21/17 09:47 Wound Center Nurse 1 [Edema Assessment] -Lower Limb Edema Present No -Right Calf (cm) 37.7 -Right Ankle (cm) 23 WC - Nurse 2 - General Ulcer CM Notes Start: 03/31/17 10:22 Freq: Status: Active Protocol: Activity Type Activity Date Activity User E-Sign Co-Sign Detail Recorded Client Recorded Date Recorded By Document 04/21/17 10:08 [id number] 04/21/17 10:10 04/21/17 10:08 Pain Scale: 0-10 Numeric [Pain] -Is Patient Pain Free? Yes Musculoskeletal: No Muscle Wasting Neurological: Cranial nerves II-XII grossly intact, Neuro grossly intact Psych/Mental Status: Normal Affect, Appropriate, Alert and oriented to time, place, person, mood and affect Debridement Note Post-Debridement Measurements/Treatment - Nurse 2 - General Ulcer CM Notes Start: 03/31/17 10:22 Freq: Status: Active Protocol: Activity Type Activity Date Activity User E-Sign Co-Sign Detail Recorded Client Recorded Date Recorded By Document 03/31/17 10:37 [id number] 03/31/17 10:39 Document 04/21/17 10:08 [id number] 04/21/17 10:10 03/31/17 04/21/17 10:37 10:08 Pain Scale: 0-10 Numeric Is Patient Pain Free? Yes Yes No debridement was completed today Assessment/Plan Active Problems Tobacco abuse counseling (Chronic) Tobacco abuse (Chronic) Hyperpigmentation (Chronic) Lipodermatosclerosis (Chronic) Edema of right lower leg due to venous stasis (Chronic) Swelling of right lower extremity (Chronic) Venous insufficiency (chronic) (peripheral) (Chronic) Assessment: This is a 51-year-old active male who presented with swelling and edema in his right lower extremity, as well as some skin changes and hyperpigmentation in the right medial supramalleolar area. The location of the skin changes and the patient's history are consistent with chronic venous disease. A venous duplex examination confirms superficial venous incompetence in the right lower extremity, affecting the right great saphenous vein and the right small saphenous vein. Plan: A lengthy discussion has been undertaken with regard to the conservative treatment measures appropriate to the management of chronic venous insufficiency. The patient has been advised to elevate his lower extremities as much as possible. He appears to be doing so already. He is sleeping on a flat mattress at night. He lays down to elevate his legs even during daytime hours. He has been advised to avoid prolonged idle standing and sitting. Activity has been encouraged. The patient is currently of reasonably good weight. The patient has obtained graduated compression stockings, knee-high length, of 20-30 mmHg compression, which he is wearing daily. The use of nonsteroidal anti-inflammatory medications has been discussed for use on an as needed basis. The patient is to return for reassessment in approximately 3 months in the private office setting. To be discharged from the wound center at this time. He may be a candidate for endovenous ablation of the right great saphenous vein and the right small saphenous vein, as he does have clinical findings and stigmata of chronic venous disease in his right lower extremity. Will be discussed at his follow-up visit in 3 months. The patient is a smoker. Smoking cessation has been advised. Smoking cessation counseling has been provided. Influenza vaccine was not administered today. The patient weighs 195 pounds. He stands 6 feet 0 inches tall. BMI is 26.4. This places the patient in the overweight category. He has been advised to discuss this matter with his primary care physician.
--- NOTE | 2017-04-21 10:34 | HP.PCM_ITS ---
(1) Venous insufficiency (chronic) (peripheral) Status: Chronic Current Visit: Yes Code(s): I87.2 - Venous insufficiency ( chronic) (peripheral) (2) Swelling of right lower extremity Status: Chronic Current Visit: Yes Code(s): M79.89 - Other specified soft tissue disorders (3) Edema of right lower leg due to venous stasis Status: Chronic Current Visit: Yes Code(s): I87.2 - Venous insufficiency ( chronic) (peripheral); R60.9 - Edema, unspecified (4) Hepatitis C Status: Chronic Current Visit: No Code(s): B19.20 - Unspecified viral hepatitis C without hepatic coma (5) Lipodermatosclerosis Status: Chronic Current Visit: Yes Code(s): I83.10 - Varicose veins of unspecified lower extremity with inflammation (6) Hyperpigmentation Status: Chronic Current Visit: Yes Code(s): L81.9 - Disorder of pigmentation , unspecified (7) Tobacco abuse Status: Chronic Current Visit: Yes Code(s): Z72.0 - Tobacco use (8) Tobacco abuse counseling Status: Chronic Current Visit: Yes Code(s): Z71.6 - Tobacco abuse counseling History of Present Illness Date of Service: 04/21/17 Chief Complaint: Chronic venous insufficiency with chronic swelling, edema, and venous stasis changes in the right lower extremity History of Wound: This is a generally healthy and active 51-year-old male with chronic venous insufficiency, and associated symptoms in his right lower extremity which are related to chronic venous disease. The patient has swelling and edema in his right lower extremity, which is more profound at the end of the day. He also complains of pain and discomfort in his right lower extremity. Patient has cutaneous manifestations of chronic venous disease, namely hyperpigmentation, hemosiderin staining, and lipodermatosclerosis on the medial aspect of the distal right lower extremity involving the gaiter area. The patient denies a history of thrombophlebitis. He leads an active lifestyle. He sleeps on a flat mattress at night. He elevates his legs during daytime hours frequently. The patient underwent a venous duplex examination at [facility] on March 10, 2017, which revealed no evidence of right lower extremity thrombophlebitis. Superficial venous incompetence was not assessed. Subsequently, patient has undergone a venous duplex examination at [facility], revealing incompetence of the right great saphenous vein, the right small saphenous vein, and the left great saphenous vein. The patient has implemented conservative treatment measures relative to his right lower extremity venous disease, which included leg elevation, avoidance of idle standing and sitting, the use of graduated compression stockings of 20-30 mmHg compression, active lifestyle, weight control measures, and the use of nonsteroidal anti-inflammatory medications as needed. Past Medical History Past Medical History: Chronic Problems Tobacco abuse counseling (Chronic) Tobacco abuse (Chronic) Hyperpigmentation (Chronic) Lipodermatosclerosis (Chronic) Hepatitis C (Chronic) Edema of right lower leg due to venous stasis (Chronic) Swelling of right lower extremity (Chronic) Venous insufficiency (chronic) (peripheral) (Chronic) Surgical History: - - The patient denies surgical procedures in the past. Allergies/Adverse Reactions: Allergies No Known Allergies Allergy (Verified 03/24/17 10:04) - Family History Maternal - - Patient's father is 73 years of age with a history of chronic obstructive pulmonary disease. Patient's mother is 72 years of age and healthy. Smoking Status: Current every day smoker Tobacco Use: Cigarettes Review of Systems Constitutional: Denies: Chills, Fever, Weight Change Eyes: Denies: Pain, Vision Change HEENT: Denies: Difficulty Hearing, Difficulty Swallowing, Sinus Congestion Cardiovascular: Denies: Chest Pain, Palpitations Respiratory: Denies: Cough, Shortness of Breath Gastrointestinal: Denies: Diarrhea, Nausea, Vomiting Genitourinary: Denies: Dysuria, Hematuria Endocrine: Denies: Heat/ Cold Intolerance, Polydipsia, Polyuria Hematologic/ Lymphatic: Denies: Easy Bruising, Easy Bleeding - Physical Exam Vital Signs Temp Pulse Resp BP 98.9 F 87 16 123/67 H 04/21/17 09:47 04/21/17 09:47 04/21/17 09:47 04/21/17 09:47 General: Alert, Oriented x3, Cooperative, No apparent distress, Well developed, Well nourished HEENT: Atraumatic, PERRLA, EOMI, Normocephalic Oral: Moist Mucosa Neck: No JVD Lungs: Normal air movement Abdomen: Non-Distended Extremities: No clubbing, No cyanosis, No edema, No Calf Tenderness, - - There is no visible swelling or edema in the patient's right lower extremity. There are no open wounds or ulcerations. Chronic venous changes are noted, namely hyperpigmentation and lipodermatosclerosis in the right gaiter area. There is no sign of infection or cellulitis. Skin: No breakdown Wound Measurements and Assessment WC - Nurse 1 - General Ulcer Measurement Start: 03/31/17 10:22 Freq: Status: Active Protocol: Activity Type Activity Date Activity User E-Sign Co-Sign Detail Recorded Client Recorded Date Recorded By Document 04/21/17 09:47 [facility] [id number] 04/21/17 09:50 [facility] 04/21/17 09:47 Wound Center Nurse 1 [Edema Assessment] -Lower Limb Edema Present No -Right Calf (cm) 37.7 -Right Ankle (cm) 23 WC - Nurse 2 - General Ulcer CM Notes Start: 03/31/17 10:22 Freq: Status: Active Protocol: Activity Type Activity Date Activity User E-Sign Co-Sign Detail Recorded Client Recorded Date Recorded By Document 04/21/17 10:08 [id number] 04/21/17 10:10 04/21/17 10:08 Pain Scale: 0-10 Numeric [Pain] -Is Patient Pain Free? Yes Musculoskeletal: No Muscle Wasting Neurological: Cranial nerves II-XII grossly intact, Neuro grossly intact Psych/Mental Status: Normal Affect, Appropriate, Alert and oriented to time, place, person, mood and affect Debridement Note Post-Debridement Measurements/Treatment - Nurse 2 - General Ulcer CM Notes Start: 03/31/17 10:22 Freq: Status: Active Protocol: Activity Type Activity Date Activity User E-Sign Co-Sign Detail Recorded Client Recorded Date Recorded By Document 03/31/17 10:37 [id number] 03/31/17 10:39 Document 04/21/17 10:08 [id number] 04/21/17 10:10 03/31/17 04/21/17 10:37 10:08 Pain Scale: 0-10 Numeric Is Patient Pain Free? Yes Yes No debridement was completed today Assessment/Plan Active Problems Tobacco abuse counseling (Chronic) Tobacco abuse (Chronic) Hyperpigmentation (Chronic) Lipodermatosclerosis (Chronic) Edema of right lower leg due to venous stasis (Chronic) Swelling of right lower extremity (Chronic) Venous insufficiency (chronic) (peripheral) (Chronic) Assessment: This is a 51-year-old active male who presented with swelling and edema in his right lower extremity, as well as some skin changes and hyperpigmentation in the right medial supramalleolar area. The location of the skin changes and the patient's history are consistent with chronic venous disease. A venous duplex examination confirms superficial venous incompetence in the right lower extremity, affecting the right great saphenous vein and the right small saphenous vein. Plan: A lengthy discussion has been undertaken with regard to the conservative treatment measures appropriate to the management of chronic venous insufficiency. The patient has been advised to elevate his lower extremities as much as possible. He appears to be doing so already. He is sleeping on a flat mattress at night. He lays down to elevate his legs even during daytime hours. He has been advised to avoid prolonged idle standing and sitting. Activity has been encouraged. The patient is currently of reasonably good weight. The patient has obtained graduated compression stockings, knee-high length, of 20-30 mmHg compression, which he is wearing daily. The use of nonsteroidal anti-inflammatory medications has been discussed for use on an as needed basis. The patient is to return for reassessment in approximately 3 months in the private office setting. To be discharged from the wound center at this time. He may be a candidate for endovenous ablation of the right great saphenous vein and the right small saphenous vein, as he does have clinical findings and stigmata of chronic venous disease in his right lower extremity. Will be discussed at his follow-up visit in 3 months. The patient is a smoker. Smoking cessation has been advised. Smoking cessation counseling has been provided. Influenza vaccine was not administered today. The patient weighs 195 pounds. He stands 6 feet 0 inches tall. BMI is 26.4. This places the patient in the overweight category. He has been advised to discuss this matter with his primary care physician.
== END 2017-04-22 23:59 ==
LOC: WC 10:00
PROVIDERS: Family Provider Nurse Practitioner Family; PCP Nurse Practitioner Family; Visit Provider Surgery
DX: I83.11 Varicose veins of right lower extremity with inflammation (principal); R60.0 Localized edema; B18.2 Chronic viral hepatitis C; F17.210 Nicotine dependence, cigarettes, uncomplicated
CPT/HCPCS: 93970; 99211; 99212; G0463

== ENCOUNTER 2017-10-27 10:58 | Outpatient (RCR) | payer MEDICAID, SELFPAY ==
[2017-10-27 11:26] VITALS: BP 108/66; PULSE 66; RESP 16; TEMP 36.4; BMI 25.0
--- NOTE | 2017-10-27 14:26 | PCM.WC.HP ---
(1) Right lower extremity infection Status: Acute Current Visit: Yes (2) Lymphadenopathy, inguinal Status: Acute Current Visit: Yes Code(s): R59.0 - Localized enlarged lymph nodes (3) Dermatitis Status: Chronic Current Visit: Yes Code(s): L30.9 - Dermatitis, unspecified (4) Tobacco abuse counseling Status: Chronic Current Visit: Yes Code(s): Z71.6 - Tobacco abuse counseling (5) Tobacco abuse Status: Chronic Current Visit: Yes Code(s): Z72.0 - Tobacco use (6) Hyperpigmentation Status: Chronic Current Visit: Yes Code(s): L81.9 - Disorder of pigmentation, unspecified (7) Lipodermatosclerosis Status: Chronic Current Visit: Yes Code(s): I83.10 - Varicose veins of unspecified lower extremity with inflammation (8) Venous insufficiency (chronic) (peripheral) Status: Chronic Current Visit: Yes Code(s): I87.2 - Venous insufficiency (chronic) (peripheral) History of Present Illness Date of Service: 10/27/17 Chief Complaint: Chronic venous insufficiency with chronic swelling, edema, and venous stasis changes in the right lower extremity History of Wound: This is a generally healthy and active 52-year-old male with chronic venous insufficiency, and associated symptoms in his right lower extremity which are related to chronic venous disease. The patient has chronic swelling and edema in his right lower extremity, which is more profound at the end of the day. He also complains of pain and discomfort in his right lower extremity. Patient has cutaneous dermatitis in his distal right lower extremity, located in the right medial supramalleolar area. There is also some mild hyperpigmentation and lipodermatosclerosis in the gaiter area of the right lower extremity. The patient denies a history of thrombophlebitis. He leads an active lifestyle. He sleeps on a flat mattress at night. He elevates his legs during daytime hours frequently. He also wears graduated compression stockings of 20-30 mmHg compression, on a daily basis. The patient underwent a venous duplex examination at [facility] on March 10, 2017, which revealed no evidence of right lower extremity thrombophlebitis. Venous duplex examination was performed on March 31, 2017, which revealed incompetence of the right great and small saphenous veins, and incompetence of the left great saphenous vein. The patient has implemented conservative treatment measures relative to his right lower extremity venous disease, which includes leg elevation, avoidance of idle standing and sitting, the use of graduated compression stockings of 20-30 mmHg compression, active lifestyle, weight control measures, and the use of nonsteroidal anti-inflammatory medications as needed. Most recently, the patient sought treatment in the [facility] emergency department on Monday, October 23, 2017. He was diagnosed with cellulitis in the distal right lower extremity, it was noted to have severe lymphadenopathy in the right inguinal area. Bactrim was prescribed orally, which has made significant improvement in the patient's symptoms and manifestations. Past Medical History Past Medical History: Chronic Problems Dermatitis (Chronic) Tobacco abuse counseling (Chronic) Tobacco abuse (Chronic) Hyperpigmentation (Chronic) Lipodermatosclerosis (Chronic) Hepatitis C (Chronic) Edema of right lower leg due to venous stasis (Chronic) Swelling of right lower extremity (Chronic) Venous insufficiency (chronic) (peripheral) (Chronic) Past Medical History: Patient's history is negative for myocardial infarction, congestive heart failure, hypertension, diabetes mellitus, cancer, cerebrovascular accident, renal disease, pulmonary disease, hyperlipidemia, and thyroid disease. Surgical History: - - The patient denies surgical procedures in the past. Allergies/Adverse Reactions: Allergies No Known Allergies Allergy (Verified 03/24/17 10:04) - Family History Maternal - - Patient's father is 73 years of age with a history of chronic obstructive pulmonary disease. Patient's mother is 72 years of age and healthy. Social History: The patient is employed as a [employer]. Smoking Status: Current every day smoker - The patient smokes 1 pack of cigarettes per day. Alcohol: Occasional Drugs: None Review of Systems Constitutional: Denies: Chills, Fever, Weight Change Eyes: Denies: Pain, Vision Change HEENT: Denies: Difficulty Hearing, Difficulty Swallowing, Sinus Congestion Cardiovascular: Denies: Chest Pain, Palpitations Respiratory: Denies: Cough, Shortness of Breath Gastrointestinal: Denies: Diarrhea, Nausea, Vomiting Genitourinary: Denies: Dysuria, Hematuria Endocrine: Denies: Heat/ Cold Intolerance, Polydipsia, Polyuria Hematologic/ Lymphatic: Denies: Easy Bruising, Easy Bleeding - Physical Exam Vital Signs Temp Pulse Resp BP 97.5 F L 66 16 108/66 09/04/18 11:26 10/27/17 11:26 10/27/17 11:26 10/27/17 11:26 General: Alert, Oriented x3, Cooperative, No apparent distress, Well developed, Well nourished HEENT: Atraumatic, PERRLA, EOMI, Normocephalic Oral: Moist Mucosa Neck: Supple, No JVD, Negative Carotid Bruits, Negative Hepatojugular Reflux, No Nodes, No Nuchal Rigidity, Trachea Midline, Thyroid Normal Size and Texture Lungs: Clear to auscultation, Normal air movement, No rhonchi, No wheeze, No rales Cardiovascular: Regular rate, Regular Rhythm, Normal S1, Normal S2, No murmurs Abdomen: Soft, Non Tender, Non-Distended Extremities: No clubbing, No cyanosis, No edema, No Calf Tenderness, - - There is no swelling or edema in the lower extremities on either side. 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 There are no large varicosities noted. There is a faint dermatitic process in the right medial supramalleolar area. It does not appear to represent infection or cellulitis. There are no open wounds or ulcerations. Significant lymphadenopathy is noted in the right inguinal area. Wound Measurements and Assessment WC - Nurse 1 - General Ulcer Measurement Start: 10/27/17 11:13 Freq: Status: Active Protocol: Activity Type Activity Date Activity User E-Sign Co-Sign Detail Recorded Client Recorded Date Recorded By Document 10/27/17 11:26 [id number] 10/27/17 11:42 10/27/17 11:26 Wound Center Nurse 1 [Ulcer Assessment] #1 RIGHT MEDICAL LE CLUSTER -Combined with other wound No -Current Size (cm) - Length 7.3 -Current Size (cm) - Width 9.0 -Current Size (cm) - Depth 0.1 -Total Square Cm 65.70 -Photo Taken Yes -Tunneling No -Undermining/Tunneling No -Circular Undermining No -Structure Exposed None/Limited to Skin Breakdown -Texture (Neva-wound Skin Appearance) No Abnormality Assessed -Moisture (Neva-wound Skin Appearance Assessed ) -Color (Neva-wound Skin Appearance) Erythema -Temperature (Neva-wound Skin No Abnormality Appearance) (Pt Warm) -Tenderness on Palpation (Neva-wound No Skin Appearance) -Ulcer Cleansing Not Cleansed -Foul Odor after Cleansing No [Edema Assessment] -Lower Limb Edema Present No -Right Calf (cm) 36 -Right Ankle (cm) 24 -Left Calf (cm) 36 -Left Ankle (cm) 21.5 WC - Nurse 2 - General Ulcer CM Notes Start: 10/27/17 11:13 Freq: Status: Active Protocol: Activity Type Activity Date Activity User E-Sign Co-Sign Detail Recorded Client Recorded Date Recorded By Document 10/27/17 12:19 [id number] 10/27/17 12:21 10/27/17 12:19 Pain Scale: 0-10 Numeric [Pain] -Is Patient Pain Free? Yes Musculoskeletal: No Muscle Wasting Neurological: Cranial nerves II-XII grossly intact, Neuro grossly intact Psych/Mental Status: Normal Affect, Appropriate, Alert and oriented to time, place, person, mood and affect Debridement Note Post-Debridement Measurements/Treatment WC - Nurse 2 - General Ulcer CM Notes Start: 10/27/17 11:13 Freq: Status: Active Protocol: Activity Type Activity Date Activity User E-Sign Co-Sign Detail Recorded Client Recorded Date Recorded By Document 10/27/17 12:19 [id number] 10/27/17 12:21 10/27/17 12:19 Pain Scale: 0-10 Numeric Is Patient Pain Free? Yes No debridement was completed today Assessment/Plan Active Problems Right lower extremity infection (Acute) Lymphadenopathy, inguinal (Acute) Dermatitis (Chronic) Tobacco abuse counseling (Chronic) Tobacco abuse (Chronic) Hyperpigmentation (Chronic) Lipodermatosclerosis (Chronic) Venous insufficiency (chronic) (peripheral) (Chronic) Assessment: This is a 52-year-old active male who presented with a recent history of suspected mild cellulitis in the distal right lower extremity, and a rather significant lymphadenopathy in the right inguinal area. He is currently on Bactrim, prescribed recently in the emergency department setting, and indicates significant symptomatic benefit has occurred. The patient has a known history of chronic venous insufficiency, and history of swelling and edema in his lower extremities, associated with pain, particularly in the right lower extremity. There is a mild dermatitis in the right medial supramalleolar area, which may or may not be associated with his venous disease. At present, it appears unlikely to be associated with his chronic venous insufficiency. As result, it has been suggested that he seek follow-up with a wrapper and preserver in this regard. Plan: A lengthy discussion has been undertaken with regard to the conservative treatment measures appropriate to the management of chronic venous insufficiency. The patient has been advised to elevate his lower extremities as much as possible. He appears to be doing so already. He is sleeping on a flat mattress at night. He lays down to elevate his legs even during daytime hours. He has been advised to avoid prolonged idle standing and sitting. Activity has been encouraged. The patient is currently of reasonably good weight. The patient has obtained graduated compression stockings, knee-high length, of 20-30 mmHg compression, which he is wearing daily. The use of nonsteroidal anti-inflammatory medications has been discussed for use on an as needed basis. The patient has been advised to seek consultation with a wrapper and preserver with regard to the dermatitis on the distal right lower extremity. He has been using antifungal agents and steroid preparations without resolution. In addition, he has been advised to follow-up with his primary care physician with regard to the lymphadenopathy in the right inguinal area. Invasive intervention with regard to the patient's right lower extremity venous disease would be inadvisable until which time the suspected infectious lymphadenopathy has resolved. The patient is to be discharged from the wound center at this time. He has been advised to follow-up in my private office in approximately 3 months for reevaluation, at which time we may consider definitive intervention with regard to his chronic venous disease. He may be a candidate for endovenous ablation of the right great saphenous vein and the right small saphenous vein, as he does have clinical findings and stigmata of chronic venous disease in his right lower extremity. This will be discussed at his follow-up visit in 3 months. The patient is a smoker. Smoking cessation has been advised. Smoking cessation counseling has been provided. Influenza vaccine was not administered today. The patient weighs 195 pounds. He stands 6 feet 0 inches tall. BMI is 26.4. This places the patient in the overweight category. He has been advised to discuss this matter with his primary care physician.
== END 2017-11-22 23:59 ==
LOC: WC 10:58
PROVIDERS: Family Provider Nurse Practitioner Family; PCP Nurse Practitioner Family; Visit Provider Surgery
DX: I83.11 Varicose veins of right lower extremity with inflammation (principal); I89.0 Lymphedema, not elsewhere classified; R59.0 Localized enlarged lymph nodes; I87.2 Venous insufficiency (chronic) (peripheral); B18.2 Chronic viral hepatitis C; F17.210 Nicotine dependence, cigarettes, uncomplicated
CPT/HCPCS: 99213; G0463